=== PATIENT | male | born 1985 | race African-American/Black ===

== ENCOUNTER 2018-03-04 10:07 | Emergency (ER) | payer SELFPAY ==
[2018-03-04 10:08] VITALS: BP 137/88; PULSE 71; RESP 18; TEMP 36.6; O2SAT 99; BMI 29.8
[2018-03-04 10:16] VITALS: BP 143/81; PULSE 60; RESP 16; O2SAT 99
--- NOTE | 2018-03-04 10:34 | RAD_ITS ---
STUDY: X-RAY CHEST REASON FOR EXAM: Male, 32 years old. 2 week history of low worsening chest pain. TECHNIQUE: Single AP portable view of the chest. COMPARISON: Comparison is made with prior study dated February 03, 2014. FINDINGS: EKG electrodes are seen. Stable 2 cm x 2 cm calcified nodule in the lateral right midlung. There is no demonstrated pleural abnormality. Normal size heart. Normal mediastinum and gabriel. Normal visualized pulmonary arteries. Normal visualized aortic arch and descending thoracic aorta. There are mild degenerative changes of the visualized thoracic spine. Normal visualized ribs, clavicles, and shoulders. There is no demonstrated abnormality of the visualized soft tissue structures of the upper abdomen. RAD/Chest 1 View (Portable) IMPRESSION: Normal x-ray examination of the chest. Electronically Signed: Kobe Flores MD at 11:13 EST Tel [phone], Service support ,
--- NOTE | 2018-03-04 10:34 | EKG12_ITS ---
Test Reason : CHEST PAIN Blood Pressure : / mmHG Vent. Rate : 058 BPM Atrial Rate : 058 BPM P-R Int : 136 ms QRS Dur : 108 ms QT Int : 386 ms P-R-T Axes : 058 -70 027 degrees QTc Int : 378 ms Sinus bradycardia Left anterior fascicular block Abnormal ECG Confirmed by ELISE JUAREZ ([id number]), proposal editor EPIFANIO MACARIO ([id number] on 03/09/2018 2:35:57 PM Referred By: [email or web address] Confirmed By:ELISE JUAREZ
--- NOTE | 2018-03-04 10:35 | ED.VISSUMM ---
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 No prior cardiac history. No history of DVT or PEs. No risk factors. No family history of blood clots or clotting disorders. Patient does have a history of asthma. He states for the last week he has had some left-sided chest discomfort. At times is sharp and stabbing and other times is pressure. Not associated with exertion. No leg pain or swelling. No recent travel, surgery, immobilization nor any hemoptysis. Pain is not pleuritic. He states the pain is been pretty constant. Nothing specifically makes it better or worse. He denies any fever or cough. Physical Examination: Well-appearing young male. No acute distress. Vital signs are stable. He is afebrile. His pulse is 9 9% room air no signs of hypoxia. HEENT exam he is blind in his right eye. Left eye external motions are intact. Neck nontender. No lymphadenopathy. No JVD. Lungs clear to auscultation bilaterally. Heart regular rate and rhythm rate about 70. No murmur. Chest wall nontender. No ecchymosis or bruising. No subcu air. Abdomen soft nontender. Normal bowel sounds no peritoneal signs. Patient moving all 4 extremities. Neurovascular intact. Equal symmetrical radial pulses. Calves are nontender without edema or cords. Neurologically is awake and alert with no focal motor deficits. Obviously he is blind in his right eye. Back exam normal. Test Results: CBC normal white count of 6. Hemoglobin 16. Chemistries normal. Creatinine 1.1. Troponin normal. EKG sinus bradycardia rate of 58. No acute signs of [place] or ischemia. No change from prior EKG from 2013. Chest x-ray showed a calcified nodule in the right lower lobe otherwise no acute abnormality. Normal cardiac silhouette mediastinum. Read both by myself and the radiologist. Emergency Department Course and Treatment: Patient will undergo cardiac workup. He has no risk factors for DVT or PE. And clinically and historically this does not appear to be a clot. He will also be given a GI cocktail with Pepcid to see if that makes any change in his symptoms. Repeat exam patient is doing well at 1157. He will be discharged to home. Treatment Plan: Tylenol and/or Motrin for pain. Follow-up with [facility] Disposition: Discharge Impression: Acute left-sided chest pain of uncertain etiology This note was generated with [employer] dictation software. It may contain incorrect words, spelling, and punctuation that were not noted in review of the chart prior to signing ED Disposition - Plan for ED Patient: Chief Complaint: Chest Pain Referrals: Care Physician,No Primary [Primary Care Provider] -
--- NOTE | 2018-03-04 10:38 | ED.DCSUM_ITS ---
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 No prior cardiac history. No history of DVT or PEs. No risk factors. No family history of blood clots or clotting disorders. Patient does have a history of asthma. He states for the last week he has had some left-sided chest discomfort. At times is sharp and stabbing and other times is pressure. Not associated with exertion. No leg pain or swelling. No recent travel, surgery, immobilization nor any hemoptysis. Pain is not pleuritic. He states the pain is been pretty constant. Nothing specifically makes it better or worse. He denies any fever or cough. Physical Examination: Well-appearing young male. No acute distress. Vital signs are stable. He is afebrile. His pulse is 9 9% room air no signs of hypoxia. HEENT exam he is blind in his right eye. Left eye external motions are intact. Neck nontender. No lymphadenopathy. No JVD. Lungs clear to auscultation bilaterally. Heart regular rate and rhythm rate about 70. No murmur. Chest wall nontender. No ecchymosis or bruising. No subcu air. Abdomen soft nontender. Normal bowel sounds no peritoneal signs. Patient moving all 4 extremities. Neurovascular intact. Equal symmetrical radial pulses. Calves are nontender without edema or cords. Neurologically is awake and alert with no focal motor deficits. Obviously he is blind in his right eye. Back exam normal. Test Results: CBC normal white count of 6. Hemoglobin 16. Chemistries normal. Creatinine 1.1. Troponin normal. EKG sinus bradycardia rate of 58. No acute signs of [place] or ischemia. No change from prior EKG from 2013. Chest x-ray showed a calcified nodule in the right lower lobe otherwise no acute abnormality. Normal cardiac silhouette mediastinum. Read both by myself and the radiologist. Emergency Department Course and Treatment: Patient will undergo cardiac workup. He has no risk factors for DVT or PE. And clinically and historically this does not appear to be a clot. He will also be given a GI cocktail with Pepcid to see if that makes any change in his symptoms. Repeat exam patient is doing well at 1157. He will be discharged to home. Treatment Plan: Tylenol and/or Motrin for pain. Follow-up with [facility]iane Disposition: Discharge Impression: Acute left-sided chest pain of uncertain etiology This note was generated with [employer] dictation software. It may contain incorrect words, spelling, and punctuation that were not noted in review of the chart prior to signing ED Disposition - Plan for ED Patient: Chief Complaint: Chest Pain Referrals: Care Physician,No Primary [Primary Care Provider] -
[2018-03-04] MEDS: Famotidine 20 MG Tablet 40 MG PO (10:41)
[2018-03-04] MEDS: Mag Hydrox/Al Hydrox/Simeth 30 ML UDC PO (10:42)
[2018-03-04 10:50] LABS: Absolute Lymphocyte Count 2.24 X10^3/ul (0.83-4.51); Absolute Neutrophil Count 3.7 X10^3/uL (2.0-7.7); Basophil# 0.03 X10^3/uL; Basophil% 0.4 % (0-1); Eosinophil# 0.22 X10^3/uL; Eosinophils% 3.3 % (0-5); Hematocrit 48.8 % (40-54); Hemoglobin 16.4 g/dl (13.0-16.5); Lymphocyte # 2.24 X10^3/ul (4.0); Lymphocyte % 33.3 % (19-41); Mean Corp Hgb Conc 33.6 g/gl (32-36); Mean Corpuscular Hgb 29.1 pg (27.0-32.0); Mean Corpuscular Volume 86.5 fL (80-94); Monocyte# 0.54 X10^3/uL; Neutrophil # 3.69 X10^3/uL (2.7-7.7); Neutrophil % 54.9 % (47-70); POSITIVE COUNT NO; POSITIVE DIFFERENTIAL NO; POSITIVE MORPHOLOGY NO; Platelet Count 347 K/mm3 (150-450); RBC Distribution Width CV 12.9 % (11.6-14.6); RBC Distribution Width SD 41.1 fl (35.1-43.9); Red Blood Count 5.64 M/mm3 (4.6-6.2); White Blood Count 6.7 K/mm3 (4.4-11.0)
[2018-03-04 11:05] LABS: Anion Gap 9 (5-15); BUN 13 mg/dL (7-18); BUN/Creat Ratio 11.7 RATIO (10-20); Calcium,Total 9.1 mg/dL (8.5-10.1); Chloride 108 mmol/L (98-107); Creatinine, Serum 1.11 mg/dL (0.70-1.30); EST Glomerular Filtration Rate 81 mL/min (>60); Est Glom Filt Rate - Afr Amer 98 mL/min (>60); Estimated Creatinine Clearance 103.89 ml/min; Glucose 98 mg/dL (74-106); Potassium 3.7 mmol/L (3.5-5.1); Sodium Level 142 mmol/L (136-145)
--- NOTE | 2018-03-04 11:13 | RAD_ITS ---
STUDY: X-RAY CHEST REASON FOR EXAM: Male, 32 years old. Right basilar density. TECHNIQUE: Lateral view. COMPARISON: Comparison is made with prior AP view done earlier in the day. FINDINGS: There is a 2.1 cm x 1.7 cm calcified nodule in the anterior aspect of the midlung. RAD/Chest 1 View IMPRESSION: Calcified nodule seen in the anterior mid lung. Electronically Signed: Kobe Flores MD at 11:38 EST Tel [phone], Service support ,
[2018-03-04 11:39] VITALS: BP 137/72; PULSE 61; RESP 12; O2SAT 98
--- NOTE | 2018-03-04 12:04 | ED.DEP ---
ED Disposition - Plan for ED Patient: Disposition: Home or Assisted Living Chief Complaint: Chest Pain Instructions: ED Chest Pain Atypical Unkn Cause Referrals: Rashel Ramos MD [STAFF PHYSICIAN] - 10-14 Days if not better Additional Instructions: Motrin for pain.
== END 2018-03-04 12:18 | disposition home or self-care (01) ==
PROVIDERS: Emergency Provider Emergency Medicine
DX: R07.9 Chest pain, unspecified (principal); J45.909 Unspecified asthma, uncomplicated; Z79.51 Long term (current) use of inhaled steroids
CPT/HCPCS: 71045; 80048; 84484; 85025; 93005; 99285; A4216